=== PATIENT | male | born 1970 | race Two or more races ===

== ENCOUNTER 2024-12-25 12:52 | Inpatient (IN) | payer MEDICARE, OTHER ==
[~2024-12-25] VITALS: Ht 160 cm; Wt 69.0 kg
[2024-12-25 13:54] LABS: PLATELET COUNT (AUTO) 160 K/uL (150-450); RED BLOOD CELL COUNT(AUTO) 4.45 MIL/uL (4.5-6.0); RED CELL DISTRIBUTION WIDTH 15.2 % (11.5-15.0); WHITE BLOOD COUNT (AUTO) 7.8 K/uL (4.3-11.0)
[2024-12-25 14:03] LABS: CALCIUM, SERUM 8.9 mg/dL (8.5-10.1); CREATININE 0.8 mg/dL (0.6-1.3); SODIUM SERUM 137 mmol/L (136-145); UREA NITROGEN, BLOOD 8 mg/dL (7-18)
[2024-12-25 14:08] LABS: ASPARTATE AMINOTRANSFERASE 10 U/L (15-37); TOTAL PROTEIN, SERUM 6.8 g/dL (6.4-8.2)
[2024-12-25 14:28] LABS: APPEARANCE,URINE CLEAR (CLEAR); BLOOD, URINE Trace-intact Ery/uL (NEGATIVE); LEUKOCYTE ESTERASE ,URINE Negative (NEGATIVE); NITRITE, URINE NEGATIVE (NEGATIVE); UGLUCOSE Negative (NEGATIVE)
[2024-12-25 14:30] LABS: ADD URINE CULTURE NO
[2024-12-25 14:31] LABS: SQUAMOUS EPITHELIAL CELL,UR None Seen /HPF (None Seen)
[2024-12-25 14:39] LABS: AMPHETAMINE, URINE NEGATIVE (NEGATIVE); BARBITURATE, URINE NEGATIVE (NEGATIVE); BENZODIAZEPINE, URINE NEGATIVE (NEGATIVE); CANNABINOID, URINE NEGATIVE (NEGATIVE); COCCAINE, URINE NEGATIVE (NEGATIVE); OPIATE, URINE NEGATIVE (NEGATIVE)
[2024-12-25] MEDS ORDERED: MAG HYDROX/AL HYDROX/SIMETH 30 ML UDC PO PRN (15:00)
[2024-12-25] MEDS ORDERED: ONDANSETRON HCL/PF 4 MG/2 ML VIAL IVP PRN (15:00)
[2024-12-25] MEDS ORDERED: MAGNESIUM HYDROXIDE 30 ML UDC PO PRN (15:00)
[2024-12-25] MEDS ORDERED: DIVA-76 PO (15:02)
[2024-12-25] MEDS ORDERED: DIPH25TA62 PO (15:02)
[2024-12-25] MEDS ORDERED: FLUV25TA3 PO (15:02)
[2024-12-25] MEDS ORDERED: NICO2GUM38 BC (15:02)
[2024-12-25] MEDS ORDERED: HALO5TAB8 PO ×2 (15:02)
[2024-12-25] MEDS ORDERED: RISP3TAB61 PO (15:02)
[2024-12-25] MEDS ORDERED: TRAZ-257 PO (15:02)
[2024-12-25] MEDS ORDERED: LORA-259 PO (15:02)
[2024-12-25] MEDS ORDERED: ACET325T53 PO ×2 (15:02)
[2024-12-25] MEDS: IV D5/0.45 NACL 1,000 ML IV PRN (20:51)
[2024-12-25 22:32] VITALS: BP 100/63; TEMP 98.1; O2SAT 99
[2024-12-26 07:05] LABS: ASPARTATE AMINOTRANSFERASE 7.0 U/L (15-37); CALCIUM, SERUM 8.9 mg/dL (8.5-10.1); CREATININE 1.0 mg/dL (0.6-1.3); PHOSPHORUS 4.0 mg/dL (2.5-4.9); SODIUM SERUM 140.0 mmol/L (136-145); TOTAL PROTEIN, SERUM 6.4 g/dL (6.4-8.2); UREA NITROGEN, BLOOD 12.0 mg/dL (7-18)
[2024-12-26 07:10] LABS: PLATELET COUNT (AUTO) 152 K/uL (150-450); RED BLOOD CELL COUNT(AUTO) 4.48 MIL/uL (4.5-6.0); RED CELL DISTRIBUTION WIDTH 15.3 % (11.5-15.0); WHITE BLOOD COUNT (AUTO) 6.4 K/uL (4.3-11.0)
[2024-12-26 08:00] VITALS: BP_SYST 114; BP_SYST 99; BP_DIAS 66; BP_DIAS 82; TEMP 98.1; TEMP 98.2; O2SAT 99
[2024-12-26 16:00] VITALS: BP 97/64; TEMP 97.5; O2SAT 100
[2024-12-26] MEDS: ACETAMINOPHEN 325 MG TABLET PO PRN (16:07)
[2024-12-26] MEDS: CLOTRIMAZOLE 1% 15 GM TUBE TP SCH (18:20)
[2024-12-26 20:00] VITALS: BP 121/75; TEMP 97.7; O2SAT 97
[2024-12-26] MEDS: LORAZEPAM 1 MG TABLET PO PRN (22:44)
[2024-12-26] MEDS: NICOTINE PATCH (21MG) 21 MG PATCH.TD24 TD SCH (23:20)
[2024-12-27 00:38] VITALS: BP 121/75; TEMP 97.7; O2SAT 97
[2024-12-27 08:00] VITALS: BP 122/81; TEMP 97.7; O2SAT 98
[2024-12-27 16:00] VITALS: BP 93/59; TEMP 97.9; O2SAT 97
[2024-12-27 20:00] VITALS: BP 107/77; TEMP 97.5; O2SAT 99
[2024-12-28 08:00] VITALS: BP 120/72; TEMP 97.7
[2024-12-28] MEDS ORDERED: RISP1TAB7 PO (13:58)
[2024-12-28] MEDS ORDERED: CLOT15CR35 TP (13:58)
[2024-12-28] MEDS ORDERED: NICO-762 TD (13:58)
== END 2024-12-28 18:34 | DRG 88 ==
LOC: ER 12:52 → MED 19:36
PROVIDERS: ADMIT Nurse Practitioner Acute Care; ATTEND Nurse Practitioner Acute Care
DX: S06.0X0A Concussion without loss of consciousness, initial encounter (principal); G93.41 Metabolic encephalopathy; F20.0 Paranoid schizophrenia; E86.0 Dehydration; N18.9 Chronic kidney disease, unspecified; R62.7 Adult failure to thrive; M19.90 Unspecified osteoarthritis, unspecified site; Z20.822 Contact with and (suspected) exposure to COVID-19; J44.9 Chronic obstructive pulmonary disease, unspecified; Y93.9 Activity, unspecified; I12.9 Hypertensive chronic kidney disease with stage 1 through stage 4 chronic kidney disease, or unspecified chronic kidney disease; F03.90 Unspecified dementia, unspecified severity, without behavioral disturbance, psychotic disturbance, mood disturbance, and anxiety; H54.8 Legal blindness, as defined in USA; R40.2362 Coma scale, best motor response, obeys commands, at arrival to emergency department; X83.8XXA Intentional self-harm by other specified means, initial encounter; R40.2142 Coma scale, eyes open, spontaneous, at arrival to emergency department; R40.2252 Coma scale, best verbal response, oriented, at arrival to emergency department; Z68.26 Body mass index [BMI] 26.0-26.9, adult; Y92.129 Unspecified place in nursing home as the place of occurrence of the external cause; Z91.199 Patient's noncompliance with other medical treatment and regimen due to unspecified reason
CPT/HCPCS: 36415; 70450-TC; 80048-TC; 80053-TC; 80076-TC; 81001; 83735-TC; 84100-TC; 85025-TC; 87081-TC; A4223; G0378; J3490